=== PATIENT | female | born 1985 | race Two or more races ===

== ENCOUNTER 2019-10-15 10:55 | Emergency (ER) | payer OTHER ==
[~2019-10-15] VITALS: Ht 160 cm; Wt 70.3 kg
== END 2019-10-15 13:26 | disposition home or self-care (01) ==
LOC: ER 10:55
DX: R60.0 Localized edema (principal); T78.1XXA Other adverse food reactions, not elsewhere classified, initial encounter; X58.XXXA Exposure to other specified factors, initial encounter